=== PATIENT | female | born 1970 | race Caucasian/White ===

== ENCOUNTER → 2017-04-22 | Outpatient (CLI) | payer BC ==
--- NOTE | 2017-04-22 11:00 | CT ---
EXAMINATION TYPE: CT sinus wo con DATE OF EXAM: 04/22/2017 COMPARISON: Sinus CT March 17, 2008 HISTORY: Chronic sinusitis per order. Headaches with sinus pressure and nasal drainage for 5 to 6 mon ths per patient. CT DLP: 570.8 mGycm. Automated Exposure Control for Dose Reduction was Utilized. TECHNIQUE: CT scan of the sinuses is performed without contrast, axial images are obtained, coronal r eformatted images are also reviewed. FINDINGS: There is redemonstration a few small mucous retention cysts or polyps in the bilateral infe rior maxillary sinuses otherwise paranasal sinuses are clear without suspicious opacity or air-fluid levels. The ostiomeatal complex is patent bilaterally on the coronal images. Visualized portion of mastoid air cells show no abnormal opacification. The globes are intact bilate rally. IMPRESSION: Stable inferior maxillary small mucous retention cysts or polyps. No new significant acut e or chronic paranasal sinus disease.
== END | disposition home or self-care (01) ==
LOC: RADCTMAIN 09:56
PROVIDERS: ATTEND Family Medicine
DX: J32.9 Chronic sinusitis, unspecified (principal)
CPT/HCPCS: 70486

== ENCOUNTER → 2017-06-09 | Outpatient (CLI) | payer BC ==
--- NOTE | 2017-06-12 07:04 | MM ---
Reason for exam: follow-up at short interval from prior study. Last mammogram was performed 6 months ago. History: Patient is postmenopausal and has history of endometrial cancer at age 42. Took hormonal contraceptives for 22 years beginning at age 20. Took progesterone for 1 year beginning at age 42. Physical Findings: Nurse did not find any significant physical abnormalities on exam. MG 3D Diag Mammo W/Cad LT CC and MLO view(s) were taken of the left breast. Prior study comparison: November 23, 2016, bilateral MG 3d screening mammo w/cad. July 01, 2015, bilateral MG 3d diag mammo w/cad ALEJANDRO. The breast tissue is heterogeneously dense. This may lower the sensitivity of mammography. No significant changes when compared with prior studies. ASSESSMENT: Benign, BI-RAD 2 RECOMMENDATION: Return to routine screening mammogram schedule for both breasts. Back on schedule.
== END | disposition home or self-care (01) ==
LOC: RADMAMWWP 13:36
PROVIDERS: ATTEND Obstetrics & Gynecology
DX: R92.8 Other abnormal and inconclusive findings on diagnostic imaging of breast (principal)
CPT/HCPCS: G0206; G0279

== ENCOUNTER → 2017-08-10 | Outpatient (CLI) | payer BC ==
[2017-08-10 20:28] LABS: Non-African American GFR(MDRD) >60 (>60 ml/min/1.73 sqM)
--- NOTE | 2017-08-11 08:33 | MR ---
EXAMINATION TYPE: MR pelvis wo/w con DATE OF EXAM: 08/10/2017 COMPARISON: CT chest abdomen and pelvis May 21, 2014 HISTORY: Endometrial sarcoma, DX in 2012, Abnormal Pelvic Exam, Prior CT in pacs 2013 CONTRAST: Standard multiplanar, multisequence MRI departmental protocol utilizing 10 mL intravenous Gadavist ga dolinium contrast. FINDINGS: Uterus is surgically absent. No suspicious free fluid is seen in pelvic cul-de-sac. In vagi nal remnant and cervix there is a 1.8 x 1.2 cm thin-walled cystic lesions seen on sagittal image 17 s eries 301 and axial image 11 series 701 favoring a large nabothian cyst. No suspicious nodularity or nodular enhancement is identified. Both ovaries are seen in the adnexa with scattered follicles or small simple appearing cysts seen bes t near axial image 29 series 701. A few subcentimeter simple appearing parapelvic cysts on the left m ay be present on axial image 30. Adjacent to right ovary there is prominent but subcentimeter iliac c ever lymph node seen best image 35 series 901 measuring 5 x 5 mm. No suspicious greater than 1 cm pel gabriel adenopathy is seen. Visualized portion of the bladder is felt within normal limits. There is no suspicious small or large bowel dilatation. There is no suspicious groin adenopathy. IMPRESSION: I see no convincing evidence of new suspicious mass or adenopathy to suggest neoplastic recurrence.
== END | disposition home or self-care (01) ==
LOC: RADMRIMAIN 19:40
PROVIDERS: ATTEND Obstetrics & Gynecology
DX: C54.1 Malignant neoplasm of endometrium (principal)
CPT/HCPCS: 82565; 72197; A9581

== ENCOUNTER → 2019-06-12 | Outpatient (CLI) | payer BC ==
--- NOTE | 2019-06-12 13:14 | XR ---
EXAMINATION TYPE: XR chest 2V DATE OF EXAM: 06/12/2019 COMPARISON: Prior chest x-ray 05/21/2014 HISTORY: Endometrial cancer follow up TECHNIQUE: Frontal and lateral views of the chest are obtained. FINDINGS: There is no focal air space opacity, pleural effusion, or pneumothorax seen. The cardiac silhouette size is within normal limits. The osseous structures are intact. IMPRESSION: No acute cardiopulmonary process.
--- NOTE | 2019-06-13 10:48 | MM ---
Reason for exam: screening (asymptomatic). Last mammogram was performed 2 years ago. History: Patient is postmenopausal and has history of endometrial cancer at age 42. Took hormonal contraceptives for 22 years beginning at age 20. Took progesterone for 1 year beginning at age 42. Physical Findings: A clinical breast exam by your physician is recommended on an annual basis and results should be correlated with mammographic findings. MG 3D Screening Mammo W/Cad Bilateral CC and MLO view(s) were taken. Prior study comparison: June 09, 2017, left breast MG 3d diag mammo w/cad LT. November 23, 2016, bilateral MG 3d screening mammo w/cad. The breast tissue is heterogeneously dense. This may lower the sensitivity of mammography. No significant changes when compared with prior studies. ASSESSMENT: Benign, BI-RAD 2 RECOMMENDATION: Routine screening mammogram of both breasts in 1 year.
== END | disposition home or self-care (01) ==
LOC: RADMAMWWP 07:04
PROVIDERS: ATTEND Family Medicine
DX: Z12.31 Encounter for screening mammogram for malignant neoplasm of breast (principal); C54.1 Malignant neoplasm of endometrium
CPT/HCPCS: 71046; 77063; 77067

== ENCOUNTER → 2019-08-27 | Outpatient (CLI) | payer BC ==
[2019-08-27 16:58] LABS: African American GFR (CKD) >90 (>60 ml/min/1.73 sqM); Blood Urea Nitrogen 12 mg/dL (7-17); Non-African American GFR(CKD) >90 (>60 ml/min/1.73 sqM)
[2019-08-27 17:28] LABS: Appearance,Urine Clear (Clear); Bilirubin,Urine Negative (Negative); Blood,Urine Negative (Negative); Color,Urine Yellow; Glucose,Urine (UA) Trace (Negative); Ketones,Urine Negative (Negative); Leukocyte Esterase,Urine Negative (Negative); Nitrite,Urine Negative (Negative); PH, Urine 5.5 (5.0-8.0); Protein,Urine Negative (Negative); Specific Gravity,Urine 1.013 (1.001-1.035); Urobilinogen,Urine <2.0 mg/dL (<2.0)
--- NOTE | 2019-08-28 05:07 | CT ---
EXAMINATION TYPE: CT ChestAbdPelvis w con DATE OF EXAM: 08/27/2019 COMPARISON: 05/21/2014 HISTORY: 48-year-old female Vaginal bleeding. Malignant neoplasm of endometrium. TECHNIQUE: Contiguous axial scanning of the chest, abdomen, and pelvis performed with IV Contrast, pa tient injected with 100ml mL of Isovue 300. Delayed images through the kidneys were obtained. Coronal /sagittal reconstructions performed. CT DLP: 2202.6 mGycm Automated exposure control for dose reduction was used. FINDINGS: CHEST: The heart is normal size without pericardial effusion. Aorta normal caliber with conventional arch vessel branching anatomy. No thoracic lymphadenopathy by CT size criteria. Progressive calcified pleural plaque along the posterior right upper lobe. 1.6 x 1.3 cm centrally located right lower lobe pulmonary nodule, axial image 33. In retrospect, this measured 10 x 8 mm balloon was located along the course of a vessel and could not be adequately deli neated. No consolidation or pleural effusion. ABDOMEN: The liver is enlarged at 20.9 cm without focal lesion. No biliary ductal dilatation. Portal venous sy stem is patent. Cholecystectomy clips. Adrenal glands, right kidney, spleen with anterior splenule, and pancreas appear within normal limits . Punctate 2 mm nonobstructive left renal calculus. No dilated small bowel, free fluid, or free air. Couple prominent right lower quadrant mesenteric lymph nodes measure up to 9 mm versus 1.2 cm, previo usly suggesting chronic reactive/post inflammatory etiology. Normal appendix. Oral contrast progressed to the transverse colon. No significant stool burden. PELVIS: Bladder is urine distended. Uterus surgically absent. Both ovaries are visualized. The previous cysti c lesion within the right ovary in 2014 has resolved. New cystic lesion of the left ovary measuring 5 .8 x 4.7 cm warrants follow-up. Tiny surgical clip in the right adnexa is unchanged. No abnormal flui d collection in the pelvis or pelvic lymphadenopathy. Bones: Stable bone island within the T5 vertebral body. No osseous destructive process. IMPRESSION: 1. STATUS POST HYSTERECTOMY. THE OVARIES ARE AGAIN VISUALIZED. INTERVAL RESOLUTION OF THE PREVIOUS DO MINANT FOLLICLE IN THE RIGHT OVARY SEEN IN 2013. DEVELOPMENT OF A NEW 5.8 X 4.7 CM CYSTIC LESION OF T HE LEFT OVARY. WHILE THIS MAY REPRESENT A DOMINANT FOLLICLE, ULTRASOUND IS RECOMMENDED TO FURTHER ABRAHAM RACTERIZE AND TO FOLLOW-UP TO ENSURE NORMAL INVOLUTION. 2. A COUPLE BORDERLINE-ENLARGED LYMPH NODES IN THE RIGHT LOWER QUADRANT MEASURING UP TO 9 MM ARE LIKE LY REACTIVE/POST INFLAMMATORY THEY WERE SLIGHTLY LARGER AT 1.2 CM ON THE PRIOR EXAM. 3. INDETERMINATE, ENLARGING RIGHT LOWER LOBE PULMONARY NODULE CURRENTLY MEASURING 1.6 X 1.3 CM. IN RE TROSPECT, THIS WAS VERY SMALL AT 10 X 8 MM LOCATED ALONG THE COURSE OF A VESSEL AND THEREFORE NOT NAYELI NTIFIED ON THE PATIENT'S 2013 EXAM. THE RELATIVELY INDOLENT GROWTH CHARACTERISTICS MAKE METASTATIC DI SEASE LESS LIKELY BUT NOT ENTIRELY EXCLUDED. EITHER CONTINUED FOLLOW-UP OR ALTERNATIVE IMAGING SUCH A S PET/CT CAN BE CONSIDERED. 4. PUNCTATE 2 MM NONOBSTRUCTIVE LEFT RENAL CALCULUS. 5. HEPATOMEGALY (20.9 CM).
== END | disposition home or self-care (01) ==
LOC: RADCTMAIN 15:23
PROVIDERS: ATTEND Obstetrics & Gynecology
DX: N83.202 Unspecified ovarian cyst, left side (principal); Z85.42 Personal history of malignant neoplasm of other parts of uterus; Z90.49 Acquired absence of other specified parts of digestive tract; Z90.710 Acquired absence of both cervix and uterus
CPT/HCPCS: 82570; 82565; 84520; 81003; 87086; 71260; 74177; 36415; Q9967

== ENCOUNTER → 2020-05-18 | Outpatient (CLI) | payer BC ==
--- NOTE | 2020-05-18 13:06 | CT ---
EXAMINATION TYPE: CT chest wo con DATE OF EXAM: 05/18/2020 COMPARISON: 08/27/1999 HISTORY: follow up lung nodule CT DLP: 562.3 mGycm. Automated Exposure Control for Dose Reduction was Utilized. TECHNIQUE: CT scan of the thorax is performed without IV contrast. FINDINGS: LUNGS: Persistent calcification along the posterior right pleura right upper lobe. Nodule in the righ t lower lobe measures 1.6 x 1.4 cm and is stable relative to the prior exam.. MEDIASTINUM: Lack of IV contrast is noted to limit evaluation for mediastinal and especially hilar ad enopathy. There are no definitive greater than 1 cm hilar or mediastinal lymph nodes. No cardiomega ly or pericardial effusion is seen. OTHER: Surgical clips in the gallbladder fossa. Nonspecific sclerotic change to upper thoracic verteb ral segment is stable from prior exam. There is a 2 mm upper pole left renal calculus. IMPRESSION: 1. Stable 1.6 cm right lower lobe pulmonary nodule. No new pulmonary nodules. Consider PET scan follo w-up. 2. Nonobstructing punctate 2 mm left upper pole renal calculus.
== END | disposition home or self-care (01) ==
LOC: RADCTMAIN 12:30
PROVIDERS: ATTEND Thoracic Surgery (Cardiothoracic Vascular Surgery)
DX: R91.1 Solitary pulmonary nodule (principal); C54.1 Malignant neoplasm of endometrium
CPT/HCPCS: 71250

== ENCOUNTER → 2021-03-15 | Outpatient (CLI) | payer OTHER ==
--- NOTE | 2021-03-15 12:55 | CT ---
EXAMINATION TYPE: CT chest wo con DATE OF EXAM: 03/15/2021 COMPARISON: 05/18/2020 HISTORY: lung nodule CT DLP: 489.[address] of the chest was performed with lung and mediastinal window settings submitted. The la ck of contrast limits evaluation of the vascular, mediastinal and parenchymal structures including th e upper abdomen. LUNGS: The lungs are clear and free of infiltrate. No atelectasis. There is an enlarging pulmonary no dule right lower lobe measuring 2.1 x 1.6 cm versus 1.7 x 1.2 cm previously. PET/CT is recommended to exclude malignancy. No additional nodules seen. No pleural effusion. No CT evidence of interstitial lung disease. MEDIASTINUM/DEONDRE: Thoracic aorta is of normal caliber with limited evaluation given lack of contrast . The heart is not enlarged. No evidence for mediastinal mass. No lymph nodes greater than 1cm. UPPER ABDOMEN: Nonobstructing left renal calculus measuring 3 mm. Cholecystectomy clips in place. OTHER: No significant other abnormality. IMPRESSION: 1. There is an enlarging pulmonary nodule right lower lobe measuring 2.1 x 1.6 cm versus 1.7 x 1.2 c m previously. PET/CT is recommended to exclude malignancy.
== END | disposition home or self-care (01) ==
LOC: RADCTMAIN 12:26
PROVIDERS: ATTEND Thoracic Surgery (Cardiothoracic Vascular Surgery)
DX: R91.1 Solitary pulmonary nodule (principal)
CPT/HCPCS: 71250

== ENCOUNTER → 2021-04-19 | Outpatient (CLI) | payer OTHER ==
--- NOTE | 2021-04-21 11:23 | MM ---
Reason for exam: screening (asymptomatic). Last mammogram was performed 1 year and 10 months ago. History: Patient is postmenopausal and has history of endometrial cancer at age 42. Took hormonal contraceptives for 22 years beginning at age 20. Took progesterone for 1 year beginning at age 42. Physical Findings: A clinical breast exam by your physician is recommended on an annual basis and results should be correlated with mammographic findings. MG 3D Screening Mammo W/Cad Bilateral CC and MLO view(s) were taken. Prior study comparison: June 12, 2019, bilateral MG 3d screening mammo w/cad. June 09, 2017, left breast MG 3d diag mammo w/cad LT. The breast tissue is extremely dense which could obscure a lesion on mammography. No significant changes when compared with prior studies. ASSESSMENT: Benign, BI-RAD 2 RECOMMENDATION: Routine screening mammogram of both breasts in 1 year.
== END | disposition home or self-care (01) ==
LOC: RADMAMWWP 10:59
PROVIDERS: ATTEND Family Medicine
DX: Z12.31 Encounter for screening mammogram for malignant neoplasm of breast (principal); Z78.0 Asymptomatic menopausal state; Z79.3 Long term (current) use of hormonal contraceptives; Z85.42 Personal history of malignant neoplasm of other parts of uterus
CPT/HCPCS: 77063; 77067

== ENCOUNTER → 2021-08-25 | Outpatient (CLI) | payer OTHER ==
--- NOTE | 2021-08-25 08:58 | MR ---
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 Imaging performed of the abdomen focusing on the liver FINDINGS: Liver: Liver size stable measuring upper limits of normal. Diffuse signal dropout consistent with dif fuse fatty infiltration is present. There is well-defined oval 1.9 x 1.4 cm lesion in the right hepat ic lobe measuring 1.8 cm craniocaudal dimension coronal image 21. Lesion has slight T1 and T2 hyperin tensity with marked signal dropout. Dynamic postcontrast imaging shows heterogeneous enhancement of t he lesion with more dense linear central enhancement on immediate postcontrast images which are more delayed than desired as there is contrast opacification of nondilated portal veins. This lesion becom es isodense with rim enhancement on delayed phase images. No additional concerning solid or cystic le usman identified. Gallbladder surgically absent. No biliary dilatation noted. No surrounding ascites. Other: Lung bases are clear. The spleen, pancreas, and both adrenal glands appear within normal limit s. No concerning renal mass or hydronephrosis is present bilaterally. No intra-abdominal ascites. No bowel dilatation. Normal-appearing appendix right lower quadrant partially imaged. Osseous structures are intact. IMPRESSION: Confirmation of 1.9 cm solid lesion right hepatic lobe. Imaging characteristics favor a h epatic adenoma given signal dropout and dynamic postcontrast imaging characteristics as detailed abov e. Metastatic lesion felt unlikely.
== END | disposition home or self-care (01) ==
LOC: RADMRIMAIN 07:44
PROVIDERS: ATTEND Thoracic Surgery (Cardiothoracic Vascular Surgery)
DX: K76.89 Other specified diseases of liver (principal); K76.0 Fatty (change of) liver, not elsewhere classified
CPT/HCPCS: 74183; A9585

== ENCOUNTER → 2022-05-30 | Outpatient (CLI) | payer OTHER ==
[2022-05-30 13:52] LABS: African American GFR (CKD) >90 (>60 ml/min/1.73 sqM); Blood Urea Nitrogen 11 mg/dL (7-17); Non-African American GFR(CKD) >90 (>60 ml/min/1.73 sqM)
--- NOTE | 2022-05-30 14:50 | CT ---
EXAMINATION TYPE: CT chest w con DATE OF EXAM: 05/30/2022 COMPARISON: 11/26/2021 HISTORY: hx of lung cancer. right lobectomy. CT DLP: 552.10 mGycm, Automated exposure control for dose reduction was used. CONTRAST: Performed injected with 100mL mL of Isovue 370. TECHNIQUE: Axial images were obtained at 5 mm thick sections. Reconstructed images are reviewed on [employer] computer in the coronal plane. FINDINGS: Portion of the thyroid visualized is normal. No suspicious lung nodules or focal infiltrates are present. There is a stable 0.3 cm density in the periphery of the left mid lung. Series 4 image 26. There is elevation of the right diaphragm which ca n be related to the patient's right lobectomy. No enlarged mediastinal or hilar adenopathy is evident. The ascending aorta diameter at the level of the main pulmonary artery is 3.3 cm. The main pulmonary artery diameter at the bifurcation is 2.[address] sections are obtained through the upper abdomen. Abdomen is essentially unremarkable. Note is made of a splenule. IMPRESSIONS: 1. No suspicious changes to suggest recurrent or metastatic lung cancer
== END | disposition home or self-care (01) ==
LOC: RADCTMAIN 13:05
PROVIDERS: ATTEND Thoracic Surgery (Cardiothoracic Vascular Surgery)
DX: C34.00 Malignant neoplasm of unspecified main bronchus (principal)
CPT/HCPCS: 82565; 84520; 71260; 36415; Q9967

== ENCOUNTER → 2022-05-30 | Outpatient (CLI) | payer OTHER ==
--- NOTE | 2022-05-31 20:29 | MM ---
Reason for Exam: Screening (asymptomatic). Last mammogram was performed 1 year(s) and 2 month(s) ago. Patient History: Menarche at age 16. First Full-Term at age 31. Hysterectomy at age 42. Postmenopausal. Endometrial cancer, age 42. Progesterone for 1 year from age 42 until age 43. Hormonal Contraceptives for 22 years from age 20 until age 42. Risk Values: Pamella 5 year model risk: 0.9%. NCI Lifetime model risk: 9.2%. Prior Study Comparison: 06/09/2017 Left Diagnostic Mammogram, [facility]. 06/12/2019 Bilateral Screening Mammogram, [facility]. 04/19/2021 Bilateral Screening Mammogram, [facility]. Tissue Density: The breast tissue is heterogeneously dense. This may lower the sensitivity of mammography. Findings: Analyzed By CAD. There is no suspicious group of microcalcifications or new suspicious mass in either breast. Overall Assessment: Negative, BI-RAD 1 Management: Screening Mammogram of both breasts in 1 year. 1. Patient should continue monthly self breast exams. 2. A clinical breast exam by your physician is recommended on an annual basis. 3. This exam should not preclude additional follow-up of suspicious palpable abnormalities. Electronically signed and approved by: Spencer Vick M.D. Radiologist
== END | disposition home or self-care (01) ==
LOC: RADMAMWWP 14:19
PROVIDERS: ATTEND Family Medicine
DX: Z12.31 Encounter for screening mammogram for malignant neoplasm of breast (principal); Z78.0 Asymptomatic menopausal state
CPT/HCPCS: 77063; 77067

== ENCOUNTER → 2023-06-19 | Outpatient (CLI) | payer OTHER ==
--- NOTE | 2023-06-20 18:54 | MM ---
Reason for Exam: Screening (asymptomatic). Last screening mammogram was performed 12 month(s) ago. Patient History: Menarche at age 16. First Full-Term at age 31. Hysterectomy at age 42. Postmenopausal. Endometrial cancer, age 42. Progesterone for 1 year from age 42 until age 43. Hormonal Contraceptives for 22 years from age 20 until age 42. Risk Values: Pamella 5 year model risk: 1.0%. NCI Lifetime model risk: 9.1%. Prior Study Comparison: 06/12/2019 Bilateral Screening Mammogram, [facility]. 04/19/2021 Bilateral Screening Mammogram, [facility]. 05/30/2022 Bilateral MG 3D screening mammo w/cad, [facility]. Tissue Density: The breast tissue is heterogeneously dense. This may lower the sensitivity of mammography. Findings: Analyzed By CAD. There is no suspicious group of microcalcifications or new suspicious mass in either breast. Overall Assessment: Negative, BI-RAD 1 Management: Screening Mammogram of both breasts in 1 year. . Patient should continue monthly self-breast exams. A clinical breast exam by your physician is recommended on an annual basis. This exam should not preclude additional follow-up of suspicious palpable abnormalities. Note on Pamella scores and lifetime risk: 1. A Pamella score greater than 3% is considered moderate risk. If this is the case, consider specialist referral to assess eligibility for a risk reducing agent. 2. If overall lifetime risk for the development of breast cancer is 20% or higher, the patient may qualify for future screening with alternating mammogram and breast MRI. Electronically signed and approved by: Spencer Vick M.D. Radiologist
== END | disposition home or self-care (01) ==
LOC: RADMAMWWP 16:09
PROVIDERS: ATTEND Family Medicine
DX: Z12.31 Encounter for screening mammogram for malignant neoplasm of breast (principal); Z78.0 Asymptomatic menopausal state
CPT/HCPCS: 77063; 77067

== ENCOUNTER → 2024-07-24 | Outpatient (CLI) | payer BC ==
--- NOTE | 2024-07-26 17:12 | MM ---
Reason for Exam: Screening (asymptomatic). Last mammogram was performed 1 year(s) and 2 month(s) ago. Patient History: Menarche at age 16. First Full-Term at age 31. Hysterectomy at age 42. Postmenopausal. Endometrial cancer, age 42. Progesterone for 1 year from age 42 until age 43. Hormonal Contraceptives for 22 years from age 20 until age 42. Risk Values: Pamella 5 year model risk: 1.0%. NCI Lifetime model risk: 8.9%. Prior Study Comparison: 04/19/2021 Bilateral Screening Mammogram, [facility]. 05/30/2022 Bilateral MG 3D screening mammo w/cad, [facility]. 06/19/2023 Bilateral MG 3D screening mammo w/cad, [facility]. Tissue Density: The breasts are heterogeneously dense, which may obscure small masses. Findings: Analyzed By CAD. There is no suspicious group of microcalcifications or new suspicious mass in either breast. Overall Assessment: Negative, BI-RAD 1 Management: Screening Mammogram of both breasts in 1 year. . Patient should continue monthly self-breast exams. A clinical breast exam by your physician is recommended on an annual basis. This exam should not preclude additional follow-up of suspicious palpable abnormalities. Note on Pamella scores and lifetime risk: 1. A Pamella score greater than 3% is considered moderate risk. If this is the case, consider specialist referral to assess eligibility for a risk reducing agent. 2. If overall lifetime risk for the development of breast cancer is 20% or higher, the patient may qualify for future screening with alternating mammogram and breast MRI. [facility], , 07/26/2024 5:09 PM. Electronically signed and approved by: Spencer Vick M.D. Radiologist
== END | disposition home or self-care (01) ==
LOC: RADMAMWWP 16:10
PROVIDERS: ATTEND Family Medicine
DX: Z12.31 Encounter for screening mammogram for malignant neoplasm of breast (principal); Z78.0 Asymptomatic menopausal state; R92.333 Mammographic heterogeneous density, bilateral breasts
CPT/HCPCS: 77063; 77067